=== PATIENT | male | born 1965 | race Caucasian/White ===

== ENCOUNTER 2019-03-24 05:48 | Inpatient (IN) ==
[2019-03-24] MEDS ORDERED: Ipratropium/Albuterol Neb 3 ML ONE ×2 (05:52→06:54)
[2019-03-24] MEDS ORDERED: Ipratropium/Albuterol Neb 3 ML IH ONE (05:56)
[2019-03-24] MEDS ORDERED: methylPREDNISolone 125 MG/2 ML VIAL IVP ONE (05:56)
[2019-03-24] MEDS ORDERED: Piperacillin/Tazobactam 3.375 GM in Water for inj. (sterile) 20 ML IVP ONE (05:56)
[2019-03-24] MEDS ORDERED: Isovue-370 500 ML BOTTLE IVP ONE (05:56)
[2019-03-24] MEDS ORDERED: Vancomycin 1,000 MG VIAL IVPB ONE (05:56)
[2019-03-24] MEDS ORDERED: 0.9 % Sodium Chloride 250 ML ONE (06:10)
[2019-03-24 06:22] LABS: VBG HCO3 19 mEq/L (21-27); VBG PCO2 27 mmHg (41-51); VBG PH 7.47 pH Units (7.32-7.42); VBG PO2 127 mmHg (25-50)
[2019-03-24] MEDS ORDERED: 0.9 % Sodium Chloride 1,000 ML IVC SCH (06:30)
--- NOTE | 2019-03-24 06:44 | Emergency Department Note ---
Disposition Clinical Impression: Shortness of breath, Hypoxia Disposition: Still a Patient Referrals: NONE,PCP [Primary Care Provider] - Time of Disposition: 07:02 General Adult HPI - General Chief complaint: ED Shortness of Breath/Dyspnea Stated complaint: CECE Time Seen by Provider: 03/24/19 05:56 Source: patient, EMS, other Limitations: no limitations - History of Present Illness Pain Scale: 0 - Related Data Allergies Allergy/AdvReac Type Severity Reaction Status Date / Time naproxen AdvReac Gastrointestinal Verified 03/24/19 05:58 Upset Past Medical History - Past Medical History Medical history: Reports: COPD, coronary artery disease, diabetes, GERD, other Psychiatric history: Reports: anxiety, depression - Social History Smoking Status: Current every day smoker Smokeless Tobacco Status: No Alcohol use: Reports: occasionally Drug use: Reports: marijuana Physical Exam - General Limitations: no limitations General appearance: alert Course Vital Signs Temperature 98.5 F 03/24/19 05:53 Pulse Rate 123 03/24/19 05:53 Respiratory Rate 46 03/24/19 05:53 Blood Pressure 143/94 03/24/19 05:53 O2 Sat by Pulse Oximetry 97 03/24/19 05:53 Temperature 98.5 F 03/24/19 05:56 Pulse Rate 123 03/24/19 05:56 Respiratory Rate 46 03/24/19 05:56 Blood Pressure 143/94 03/24/19 05:56 O2 Sat by Pulse Oximetry 98 03/24/19 05:56 Oxygen Delivery Oxygen Delivery Bipap Medical Decision Making - Lab Data Lab Results 03/24/19 Range/Units 06:20 VBG pH 7.47 H (7.32-7.42) pH Units VBG pCO2 27 L (41-51) mmHg VBG pO2 127 H (25-50) mmHg VBG HCO3 19 L (21-27) mEq/L Attestation Statement - Attestation Attestation: I, Roshan Mathew DO, examined this patient [id number] and my medical decision-making was reviewed with Dr. Lizbet Fitzgerald, Resident Physician. I agree with the documented findings, disposition and treatment plan as described except to the extent set forth below. I personally supervised and was present for the ellington/critical portions of the procedures completed by the resident documented below. Please see my progress notes for details. 53-year-old male presents emergency room for evaluation of increased work of breathing and shortness of breath. Patient was transferred from the [facility] for evaluation of hypoxia and increased work of breathing. P atient was placed on BiPAP prior to transportation. Pulse ox is in the 70s with initially evaluated and that responded appropriately during transport. On arrival here the patient is alert and oriented. He is able to fall commands and answer questions. Patient has diaphoretic skin. His lungs are significantly diminished with expiratory wheezing. Heart is regular and tachycardic. Abdomen is soft. No guarding no rigidity noted at this time. Extremities otherwise normal. Patient was replaced on BiPAP. VBG, CBC, chemistry, troponin, BNP were collected in order this time. EKG was also collected. Chest x-ray and labs are otherwise pending. Disposition to be determined. EKG is reviewed by myself in documented in the resident physician's note. See detailed documentation of the physical exam, medical intervention, medical decision-making and disposition the resident physician's note. No critical care provider the patient's treatment course at this time. [id number] Patient has labs and imaging that is still pending at this time. Disposition to be completed by the daytime physician Dr. Russ Elizondo. Patient will most likely require admission at this facility or have the ability to be transferred back to the [facility] after the workup has been completed. Patient is otherwise clinically stable and still has pending imaging to be established.
--- NOTE | 2019-03-24 06:48 | Emergency Department Note ---
Disposition Clinical Impression: Shortness of breath, Hypoxia Disposition: Still a Patient Condition: Fair Referrals: NONE,PCP [Primary Care Provider] - Forms: ED Satisfaction Letter Time of Disposition: 07:10 SOB HPI - General Chief Complaint: ED Shortness of Breath/Dyspnea Stated Complaint: CECE Time Seen by Provider: 03/24/19 05:56 Source: patient, EMS, other Mode of arrival: EMS Limitations: no limitations Nursing Notes Reviewed: Yes Vital Signs Reviewed: Yes - History of Present Illness Patient states that he started to feel poorly on Saturday [facility]. He was diagnosed with pneumonia and admitted. Overnight around 1:00 in the morning patient began to feel extremely short of breath, and so EMS was called and he was brought to this facility for further evaluation. Patient arrives on BiPAP, he is alert and oriented, talking, able to answer questions. He states that he is feeling much better that he fell yesterday. EMS notes that when they first arrived his oxygen saturation was in the 70s, and remained in the high 80s to low 90s during transport while on BiPAP. Upon initial evaluation BiPAP mask does not appear to be well fitting, patient is quickly moved over to the BiPAP apparatus in this facility. - Related Data Allergies Allergy/AdvReac Type Severity Reaction Status Date / Time naproxen AdvReac Gastrointestinal Verified 03/24/19 05:58 Upset Review of Systems: In addition to that documented in the HPI above, the additional ROS was obtained: Constitutional: Reports fevers and chills Eyes: Denies vision changes ENMT: Denies sore throat CV: Denies chest pain Resp: Reports SOB GI: Denies vomiting or diarrhea : Denies painful urination MSK: Denies recent trauma Skin: Denies new rashes Neuro: Denies new numbness or tingling or weakness Past Medical History - Past Medical History Attestation: Yes The following information was validated with the patient. Medical history: Reports: COPD, coronary artery disease, diabetes, GERD, other Psychiatric history: Reports: anxiety, depression - Social History Smoking Status: Current every day smoker Smokeless Tobacco Status: No Alcohol use: Reports: occasionally Drug use: Reports: marijuana Physical Exam General: Awake. Conversant. Tachynpneic. Well developed, well nourished. Pt is diaphoretic. Head: atraumatic, normocephalic. ENT: No conjunctival injection, no scleral icterus. PERRLA. EOMI. Oropharynx non- erythematous. mucous membranes moist. Neuro: No focal deficits, no speech deficit, no facial droop, mentating well. BUE/BLE Str 5/5. Pulm: Right sided wheezes in upper and lower lung mendez. Left sided mendez CTAB. Cardio: RRR no m/r/g. Chest not tender to palpation. Abd: Soft, non-distended. Normoactive bowel sounds. Non-tender to palpation. No guarding. Non rigid. Extremities: Radial pulses 2+ geovani, dorsalis pedis/posterior tibialis 2+ geovani. No LE edema. No cyanosis, clubbing. Skin: warm, dry, intact. No rashes. Psych: Appropriate mood and affect. Answers questions appropriately. Cooperative with exam. - General Limitations: no limitations General appearance: alert Course Vital Signs Respiratory Rate 45 03/24/19 05:50 O2 Sat by Pulse Oximetry 98 03/24/19 05:50 Temperature 98.5 F 03/24/19 05:56 Pulse Rate 118 03/24/19 06:46 Respiratory Rate 42 03/24/19 06:46 Blood Pressure 118/72 03/24/19 06:46 O2 Sat by Pulse Oximetry 99 03/24/19 06:46 Oxygen Delivery Oxygen Delivery Bipap Shortness of Breath/Dyspnea - MDM Narrative Medical decision making narrative: Patient will be signed out to the dayshift team. Please see Dr. Russ Elizondo's note for full results of the workup and disposition. - Lab Data Lab Results 03/24/19 03/24/19 Range/Units 05:58 06:20 VBG pH 7.47 H (7.32-7.42) pH Units VBG pCO2 27 L (41-51) mmHg VBG pO2 127 H (25-50) mmHg VBG HCO3 19 L (21-27) mEq/L Lactic Acid 1.1 (0.5-2.2) mmol/L - EKG Data EKG attestation: Yes I reviewed and interpreted this EKG. EKG results narrative: Heart rate 123, rhythm sinus tachycardia, axis normal. All intervals within normal limits. No evidence of ST elevation or depression. Low voltage in precordial leads noted. Attestation Statement - Attestation Attestation: I, Roshan Mathew DO, examined this patient [id number] and my medical decision-making was reviewed with Dr. Lizbet Fitzgerald, Resident Physician. I agree with the documented findings, disposition and treatment plan as described except to the extent set forth below. I personally supervised and was present for the ellington/critical portions of the procedures completed by the resident documented below. Please see my progress notes for details.
[2019-03-24 07:50] LABS: Hematocrit 41.2 % (37.5-50.1); Hemoglobin 14.6 g/dL (12.9-16.9); Mean Corpuscular HGB Conc 35.4 g/dL (31.6-35.5); Mean Corpuscular Hemoglobin 30.7 pg (28.0-33.3); Mean Corpuscular Volume 86.6 fL (83.0-100.0); Mean Platelet Volume 11.7 fL (9.4-12.4); Platelet Count 130 K/mcL (140-400); Red Blood Count 4.76 M/mcL (4.19-5.50); Red Cell Distribution Width 12.5 % (11.5-14.5)
[2019-03-24 08:13] LABS: Alanine Aminotransferase 43 Units/L (7-52); Albumin/Globulin Ratio 1.2 (1.1-2.2); Alkaline Phosphatase 57 Units/L (34-104); Aspartate Amino Transferase 53 Units/L (13-39); BUN/Creatinine Ratio 23 (6-26); Bilirubin,Direct 0.4 mg/dL (0.0-0.2); Bilirubin,Indirect 0.4 mg/dL (0.0-1.2); Bilirubin,Total 0.8 mg/dL (0.3-1.0); Blood Urea Nitrogen 18 mg/dL (6-20); Calcium 8.1 mg/dL (8.6-10.3); Carbon Dioxide 20 mEq/L (23-29); Chloride 90 mEq/L (98-107); Globulin 2.6 g/dL (2.4-3.5); Glucose 288 mg/dL (70-105); Osmolality,Calculated 272 (280-300); Potassium 3.7 mEq/L (3.5-5.1); Sodium 125 mEq/L (136-145); Total Protein 5.6 g/dL (6.4-8.9); eGFR For African Americans > 60 (> 60); eGFR For Non-African Americans > 60 (> 60)
[2019-03-24 08:14] LABS: Troponin I < 0.03 ng/mL (< 0.04)
[2019-03-24 09:18] LABS: Toxic Granulation Present (Not Present)
[2019-03-24 09:19] LABS: Platelet Estimate Decreased (Normal)
--- NOTE | 2019-03-24 10:45 | Internal Med History&Physical ---
Date of Encounter: 03/24/19 Time of Encounter: 14:43 Internal Medicine - H&P: HPI Chief complaint: shortness of breath History of present illness: Mr. Abbott is a 54 year old male with past medical history of COPD, coronary artery disease, diabetes, GERD, Vit D deficiency/allergic rhinitis, Shaikh's esophagus, cannabis abuse and ETOH abuse and tobacco abuse who [facility] generalized [facility] and shortness of breath, he was diagnosed with pneumonia and he was admitted for further evaluation and management. This morning the patient reportedly started complaining of difficulty breathing and he is oxygen saturation start dropping down, he was started on BiPAP and then was sent to the ER for further evaluation and management. As per documentation when EMS first arrived the patient was saturating in mid 70s that improved on BiPAP 90s. According to the ER documentation the BiPAP mask was not fitted well, and after starting BiPAP through the facility apparatus the patient saturation improved significantly, the patient was treated with antibiotic and steroids in the ER and was admitted for further evaluation and management of COPD exacerbation. The patient is feeling much better and has no specific complaints. Past Med Surg Social Fam HX - Past Medical History Medical history: COPD, coronary artery disease, diabetes, GERD, other Additional medical history: Vit D deficiency/allergic rhinitis. Shaikh's esophagus. cannabis abuse and ETOH abuse and tobacco abuse. obesity/chronic prostatitis. hepatomegaly Psychiatric history: anxiety, depression - Social History Smoking Status: Current every day smoker Smokeless Tobacco Status: No Alcohol use: occasionally Drug use: marijuana Internal Medicine - H&P: Meds Atorvastatin Calcium [Lipitor] 40 mg PO HS 03/24/19 [History] Ipratropium/Albuterol Sulfate [Combivent Respimat Inhal [place]] 1 puff IH QID PRN 03/24/19 [History] Omeprazole [PriLOSEC] 20 mg PO DAILY 03/24/19 [History] Budesonide/Formoterol 160/4.5 [Symbicort 160/4.5] 2 puff IH BIDR 03/25/19 [History] Cetirizine HCl [Zyrtec] 10 mg PO DAILY PRN 03/25/19 [History] Ketotifen Fumarate [Zaditor] 1 drop BOTH EYES BID 03/25/19 [History] Losartan Potassium 50 mg PO DAILY 03/25/19 [History] Metformin HCl [Glucophage Xr] 1,000 mg PO DAILY 03/25/19 [History] Tetrahydrozoline HCl [Visine] 2 drop BOTH EYES DAILY 03/25/19 [History] Alcohol Antiseptic Pads [Alcohol Pads] 1 each TP 2-4XD #100 med..pad 03/28/19 [Rx] Blood Sugar Diagnostic [Accu-Chek Guide Test Strip] 1 each ACHS #100 strip 03/28/19 [Rx] Blood-Glucose Meter, Drum-Type [Accu-Chek] 1 each DAILY #1 kit 03/28/19 [Rx] Budesonide Neb [Pulmicort Neb] 0.5 mg IH BIDR #60 ampul.neb 03/28/19 [Rx] Folic Acid 1 mg PO DAILY #30 tablet 03/28/19 [Rx] Insulin Aspart (Niacinamide) [Fiasp 100 Unit/ml Flextouch] 5 unit SQ TIDAC #1 insuln.pen 03/28/19 [Rx] Insulin DETEMIR [Levemir] 30 unit SQ DAILY #1 [id number] 03/28/19 [Rx] Ipratropium/Albuterol Neb [Duoneb] 3 ml IH Q4HR PRN #100 inhsol 03/28/19 [Rx] Lancets 1 each ACHS #100 each 03/28/19 [Rx] Levofloxacin [Levaquin] 750 mg PO DAILY 10 Days #10 tablet 03/28/19 [Rx] Nicotine Patch [Nicoderm] 14 mg TD DAILY #30 patch.td24 03/28/19 [Rx] Thiamine HCl 100 mg PO QAM #30 tablet 03/28/19 [Rx] predniSONE [PredniSONE] See Taper PO DAILY #30 tablet 03/28/19 [Rx] Allergy/AdvReac Type Severity Reaction Status Date / Time naproxen AdvReac Gastrointestinal Verified 03/25/19 08:07 Upset All Systems PM: A 10-system review of systems was performed and is negative for pertinent findings except as documented above in the HPI. - Constitutional Vitals: Temp Pulse Resp BP Pulse Ox 98.5 F 107 40 134/85 100 03/24/19 05:56 03/24/19 09:57 03/24/19 09:57 03/24/19 09:30 03/24/19 09:57 General appearance: Present: A&O X 3 Exam: ` - Head Head exam: Present: atraumatic, normocephalic - Neck Neck exam general surgery: Present: supple, trachea midline. Absent: lymphadenopathy - Respiratory Respiratory exam: Present: rhonchi, wheezes. Absent: accessory muscle use, rales - Cardiovascular Cardiovascular exam: Present: RRR, +S1, +S2. Absent: diastolic murmur, gallop, rubs, systolic murmur - GI/Abdominal GI/Abdominal exam: Present: normal bowel sounds, soft, no peritoneal signs. Absent: distended, tenderness - Extremities Exam Extremities exam: Present: pedal edema, warm, radial pulses palpable and symmetrical. Absent: calf tenderness, cyanotic Internal Med - H&P Results - Labs CBC & Chem 7: 03/28/19 03:55 03/28/19 03:55 Labs: Short CBC 03/24/19 Range/Units 07:33 WBC 12.0 H (4.3-11.1) K/mcL Hgb 14.6 (12.9-16.9) g/dL Hct 41.2 (37.5-50.1) % Plt Count 130 L (140-400) K/mcL Neutrophils # 12.0 H (1.6-8.9) K/mcL BMP 03/24/19 07:33 Sodium 125 L Potassium 3.7 Chloride 90 L Carbon Dioxide 20 L BUN 18 Creatinine 0.79 Glucose 288 H Calcium 8.1 L Cardiac Enzymes 03/24/19 Range/Units 07:33 Troponin I < 0.03 (< 0.04) ng/mL Liver Function 03/24/19 Range/Units 07:33 Total Bilirubin 0.8 (0.3-1.0) mg/dL Direct Bilirubin 0.4 H (0.0-0.2) mg/dL AST 53 H (13-39) Units/L ALT 43 (7-52) Units/L Alkaline Phosphatase 57 (34-104) Units/L Albumin 3.0 L (3.5-5.7) g/dL - ABG Interpretation ABG results: 03/24/19 06:20 VBG pH 7.47 H VBG pCO2 27 L VBG pO2 127 H VBG HCO3 19 L - Impressions ITS Impressions Chest CTA 03/24/19 05:56 IMPRESSION: Right upper and right middle lobe consolidation and right-sided pleural effusion consistent with pneumonia No evidence for pulmonary emboli. D/ / Roger Norton MD / Roger Norton MD Interpreting Provider: Roger Norton MD Chest X-Ray 03/24/19 05:56 IMPRESSION: Right lung pneumonia. Follow-up to resolution is recommended. D/ / Yo Grubbs MD / Yo Grubbs MD Interpreting Provider: Yo Grubbs MD - Assessment and Plan (1) COPD exacerbation Status: Acute Assessment and plan: - SOB due to COPD caused by URTI ( Pneumonia - infiltrate on CXR) PLAN: - Aerosols q 4 hr and PRN SOB - Solu-medrol 40 mg IV q 6 hr - O2 to keep SpO2 higher than 92% (SpO higher than 95% if CAD) - CBCD, BMP in AM - Sputum Gram stain, C+S - Robitussin 10 cc PO q 4 hr - ABs (2) Coronary artery disease Status: Acute Assessment and plan: the patient denies complaint of chest pain, EKG changes revealed no significant changes, will continue home medications Qualifiers: Qualified Code(s): I25.10 - Atherosclerotic heart disease of jackson coronary artery without angina pectoris (3) Diabetes Status: Acute Assessment and plan: we'll discharge the patient on insulin sliding scale was moderate, Qualifiers: Diabetes mellitus type: type 2 Qualified Code(s): E11.69 - Type 2 diabetes mellitus with other specified complication (4) GERD (gastroesophageal reflux disease) Status: Acute Assessment and plan: we'll continue proton pump inhibitor Qualifiers: Esophagitis presence: without esophagitis Qualified Code(s): K21.9 - Gastro-esophageal reflux disease without esophagitis (5) DVT prophylaxis Status: Acute Assessment and plan: [place] the patient on SCDs (6) Hyponatremia Status: Acute Assessment and plan: most likely secondary to volume depletion in the setting of sepsis and pneumonia, we will start the patient in the dehydration with isotonic fluids. We will continue to monitor sodium level. - Time Spent With Patient Total time spent is greater than 50% in coordination of care (as documented) at patient's floor/unit and/or counseling patient:
[2019-03-24] MEDS ORDERED: Ondansetron 4 MG/2 ML VIAL IVP PRN (10:46)
[2019-03-24] MEDS ORDERED: Naloxone 0.4 MG/ML INJ IVP PRN (10:46)
[2019-03-24] MEDS ORDERED: Vancomycin (wt based) 1,000 MG VIAL IVPB SCH (11:00)
[2019-03-24] MEDS ORDERED: Ipratropium/Albuterol Neb 3 ML IH PRN (11:05)
[2019-03-24] MEDS ORDERED: D5% in Water 1,000 ML IVC PRN (11:06)
[2019-03-24] MEDS ORDERED: Dextrose Gel 15 GM/37.5 ML TUBE PO PRN ×2 (11:06)
[2019-03-24] MEDS ORDERED: *HR* Dextrose 50 % in Water (Syg) 50 ML SYRINGE IVP PRN (11:06)
[2019-03-24] MEDS: 0.9 % Sodium Chloride 1,000 ML IVC SCH ×2 (11:15→21:05)
[2019-03-24 12:31] LABS: Estimated Average Glucose 229 mg/dl
[2019-03-24] MEDS: MethylPREDNISolone 40 MG/ML VIAL IVP SCH ×2 (12:40→16:56)
[2019-03-24] MEDS: Insulin LISPRO 300 UNITS/3 ML VIAL SQ SCH ×3 (13:14→21:04)
--- NOTE | 2019-03-24 14:10 | Electrocardiograph Report ---
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
[2019-03-24] MEDS: Nicotine 14 MG PATCH.TD24 TD SCH (14:53)
[2019-03-24] MEDS ORDERED: Menthol 9.1 MG LOZENGE PO PRN (14:57)
[2019-03-24] MEDS: Ipratropium/Albuterol Neb 3 ML IH SCH ×2 (16:43→22:12)
[2019-03-24] MEDS: Piperacillin/Tazobactam 3.375 GM in 0.9 % Sodium Chloride Mini Bag 100 ML IVPB SCH (16:55)
[2019-03-24] MEDS ORDERED: Pantoprazole 40 MG VIAL IVP SCH (18:00)
[2019-03-24 18:22] LABS: VBG HCO3 22 mEq/L (21-27); VBG PCO2 47 mmHg (41-51); VBG PH 7.28 pH Units (7.32-7.42); VBG PO2 86 mmHg (25-50)
[2019-03-24] MEDS: Ketotifen Fumarate [Zaditor] 1 DROP OP SCH (20:58)
[2019-03-24] MEDS: Acetaminophen 325 MG TABLET PO PRN (22:37)
[2019-03-24 23:13] LABS: Bilirubin,Urine Negative (Negative); Blood,Urine Moderate (Negative); Clarity,Urine Clear (Clear); Color,Urine Yellow (Yellow); Glucose,Urine (UA) >=1000 mg/dL (Normal); Ketones,Urine Trace mg/dL (Negative); Leukocyte Esterase,Urine Negative (Negative); Nitrite,Urine Negative (Negative); PH,Urine 6.5 pH Units (5.0-8.0); Protein,Urine Trace mg/dL (Neg-Trace); Specific Gravity,Urine 1.017 (1.010-1.025); Urobilinogen,Urine Normal (Normal)
[2019-03-24 23:16] LABS: Bacteria,Urine None Seen per hpf (None-Few); Hyaline Casts,Urine None Seen per lpf (None-Few); Squamous Epithelial Cell,Urine None Seen per lpf (None-Few); WBC,Urine 0-3 per hpf (0-3)
[2019-03-25] MEDS: Piperacillin/Tazobactam 3.375 GM in 0.9 % Sodium Chloride Mini Bag 100 ML IVPB SCH ×3 (00:20→16:55)
[2019-03-25] MEDS: MethylPREDNISolone 40 MG/ML VIAL IVP SCH ×2 (00:20→05:41)
[2019-03-25] MEDS: Ipratropium/Albuterol Neb 3 ML IH SCH ×4 (03:54→22:39)
[2019-03-25 05:08] LABS: Hematocrit 38.7 % (37.5-50.1); Hemoglobin 13.8 g/dL (12.9-16.9); Mean Corpuscular HGB Conc 35.7 g/dL (31.6-35.5); Mean Corpuscular Hemoglobin 30.2 pg (28.0-33.3); Mean Corpuscular Volume 84.7 fL (83.0-100.0); Mean Platelet Volume 11.8 fL (9.4-12.4); Platelet Count 152 K/mcL (140-400); Red Blood Count 4.57 M/mcL (4.19-5.50); Red Cell Distribution Width 12.9 % (11.5-14.5); White Blood Count 15.5 K/mcL (4.3-11.1)
[2019-03-25 05:14] LABS: INR 1.2; Prothrombin Time 13.1 Seconds (9.4-12.1)
[2019-03-25 05:17] LABS: Activated Partial Thrombo Time 24.4 Seconds (26.0-36.0)
[2019-03-25 05:29] LABS: Alanine Aminotransferase 41 Units/L (7-52); Albumin 2.8 g/dL (3.5-5.7); Albumin/Globulin Ratio 1.1 (1.1-2.2); Alkaline Phosphatase 57 Units/L (34-104); Aspartate Amino Transferase 43 Units/L (13-39); BUN/Creatinine Ratio 34 (6-26); Bilirubin,Total 0.5 mg/dL (0.3-1.0); Blood Urea Nitrogen 22 mg/dL (6-20); Calcium 8.2 mg/dL (8.6-10.3); Carbon Dioxide 22 mEq/L (23-29); Chloride 95 mEq/L (98-107); Chol/HDL Ratio 7.6 (0-4.9); Cholesterol 99 mg/dL (< 200); Globulin 2.5 g/dL (2.4-3.5); Glucose 316 mg/dL (70-105); HDL Cholesterol 13 mg/dL (40-59); LDL Cholesterol,Calculated 48 mg/dL (0-99); Magnesium 2.2 mg/dL (1.6-2.6); Osmolality,Calculated 285 (280-300); Phosphorous 2.2 mg/dL (2.7-4.5); Potassium 3.8 mEq/L (3.5-5.1); Sodium 130 mEq/L (136-145); Total Protein 5.3 g/dL (6.4-8.9); Triglycerides 191 mg/dL (< 150); eGFR For African Americans > 60 (> 60); eGFR For Non-African Americans > 60 (> 60)
[2019-03-25] MEDS: *HR* Enoxaparin 30 MG/0.3 ML SYRINGE SQ SCH (05:41)
[2019-03-25] MEDS: Acetaminophen 325 MG TABLET PO PRN ×3 (05:41→19:20)
[2019-03-25 06:22] LABS: Lymphocytes # 0.3 K/mcL (0.6-4.6); Monocytes # 0.6 K/mcL (0.0-1.3); Neutrophils # 14.3 K/mcL (1.6-8.9)
[2019-03-25 06:23] LABS: Platelet Estimate Normal (Normal)
--- NOTE | 2019-03-25 07:36 | Emergency Department Note ---
Disposition Clinical Impression: Shortness of breath, Hypoxia Disposition: Admitted As Inpatient Condition: Fair Time of Disposition: 09:34 SOB HPI - General Chief Complaint: ED Shortness of Breath/Dyspnea Stated Complaint: CECE Time Seen by Provider: 03/24/19 05:56 Source: patient, EMS, other Mode of arrival: EMS Limitations: no limitations Nursing Notes Reviewed: Yes Vital Signs Reviewed: Yes - Related Data Home Medications Medication Instructions Recorded Confirmed Alogliptin Benzoate [Alogliptin] 25 mg PO DAILY 03/24/19 03/24/19 Atorvastatin Calcium [Lipitor] 40 mg PO HS 03/24/19 03/24/19 Ipratropium/Albuterol Sulfate 1 puff IH Q4HR PRN 03/24/19 03/24/19 [Combivent Respimat Inhal [place]] Ketotifen Fumarate [Zaditor] 1 drop BOTH EYES BID 03/24/19 03/24/19 Omeprazole [PriLOSEC] 20 mg PO BIDAC 03/24/19 03/24/19 metFORMIN [Glucophage] 500 mg PO BID 03/24/19 03/24/19 Allergies Allergy/AdvReac Type Severity Reaction Status Date / Time naproxen AdvReac Gastrointestinal Verified 03/24/19 05:58 Upset Past Medical History - Past Medical History Medical history: Reports: COPD, coronary artery disease, diabetes, GERD, other Psychiatric history: Reports: anxiety, depression - Social History Smoking Status: Current every day smoker Smokeless Tobacco Status: No Alcohol use: Reports: occasionally Drug use: Reports: marijuana Physical Exam - General Limitations: no limitations General appearance: alert Course Vital Signs Respiratory Rate 45 03/24/19 05:50 O2 Sat by Pulse Oximetry 98 03/24/19 05:50 Temperature 98.5 F 03/25/19 03:33 Pulse Rate 85 03/25/19 03:33 Respiratory Rate 20 03/25/19 04:00 Blood Pressure 145/85 03/25/19 03:33 O2 Sat by Pulse Oximetry 93 03/25/19 04:00 Oxygen Delivery Oxygen Delivery Bipap Shortness of Breath/Dyspnea - MDM Narrative Medical decision making narrative: 54-year-old male received in sign out at started my shift pending CT of the chest, reevaluation and disposition. CT does not show evidence of large PE or acute surgical abnormality. Patient was updated regarding the imaging results. He was already started on antibiotics in the emergency department. His tachycardia did improve with IV fluids and BiPAP however it did not resolve. He is not hypoxic or hypotensive. Patient is resting comfortably in the bed. He will be admitted to the hospitalist for further care and evaluation. - Lab Data Result diagrams: 03/25/19 04:18 03/25/19 04:18 Lab Results 03/24/19 03/24/19 03/24/19 Range/Units 05:58 06:20 07:33 WBC 12.0 H (4.3-11.1) K/mcL RBC 4.76 (4.19-5.50) M/mcL Hgb 14.6 (12.9-16.9) g/dL Hct 41.2 (37.5-50.1) % MCV 86.6 (83.0-100.0) fL MCH 30.7 (28.0-33.3) pg MCHC 35.4 (31.6-35.5) g/dL RDW 12.5 (11.5-14.5) % Plt Count 130 L (140-400) K/mcL MPV 11.7 (9.4-12.4) fL Seg Neutrophils % 94.0 % Band Neutrophils % 6.0 H (0-4) % Neutrophils # 12.0 H (1.6-8.9) K/mcL Toxic Granulation Present A (Not Present) Platelet Estimate Decreased L (Normal) Large Platelets (Not Present) VBG pH 7.47 H (7.32-7.42) pH Units VBG pCO2 27 L (41-51) mmHg VBG pO2 127 H (25-50) mmHg VBG HCO3 19 L (21-27) mEq/L Sodium (136-145) mEq/L Potassium (3.5-5.1) mEq/L Chloride (98-107) mEq/L Carbon Dioxide (23-29) mEq/L BUN (6-20) mg/dL Creatinine (0.70-1.30) mg/dL Est GFR ( Amer) (> 60) Est GFR (Non-Af Amer) (> 60) BUN/Creatinine Ratio (6-26) Glucose (70-105) mg/dL Est Mean Plasma Glucose mg/dl Hemoglobin A1c ( - 5.6) % Calculated Osmolality (280-300) Lactic Acid 1.1 (0.5-2.2) mmol/L Calcium (8.6-10.3) mg/dL Total Bilirubin (0.3-1.0) mg/dL Direct Bilirubin (0.0-0.2) mg/dL Indirect Bilirubin (0.0-1.2) mg/dL AST (13-39) Units/L ALT (7-52) Units/L Alkaline Phosphatase (34-104) Units/L Troponin I (< 0.04) ng/mL B-Natriuretic Peptide (Less than 100) pg/mL Serum Total Protein (6.4-8.9) g/dL Albumin (3.5-5.7) g/dL Globulin (2.4-3.5) g/dL Albumin/Globulin Ratio (1.1-2.2) 03/24/19 03/24/19 03/24/19 Range/Units 07:33 07:33 07:33 WBC (4.3-11.1) K/mcL RBC (4.19-5.50) M/mcL Hgb (12.9-16.9) g/dL Hct (37.5-50.1) % MCV (83.0-100.0) fL MCH (28.0-33.3) pg MCHC (31.6-35.5) g/dL RDW (11.5-14.5) % Plt Count (140-400) K/mcL MPV (9.4-12.4) fL Seg Neutrophils % % Band Neutrophils % (0-4) % Neutrophils # (1.6-8.9) K/mcL Toxic Granulation (Not Present) Platelet Estimate (Normal) Large Platelets (Not Present) VBG pH (7.32-7.42) pH Units VBG pCO2 (41-51) mmHg VBG pO2 (25-50) mmHg VBG HCO3 (21-27) mEq/L Sodium 125 L (136-145) mEq/L Potassium 3.7 (3.5-5.1) mEq/L Chloride 90 L (98-107) mEq/L Carbon Dioxide 20 L (23-29) mEq/L BUN 18 (6-20) mg/dL Creatinine 0.79 (0.70-1.30) mg/dL Est GFR ( Amer) > 60 (> 60) Est GFR (Non-Af Amer) > 60 (> 60) BUN/Creatinine Ratio 23 (6-26) Glucose 288 H (70-105) mg/dL Est Mean Plasma Glucose mg/dl Hemoglobin A1c ( - 5.6) % Calculated Osmolality 272 L (280-300) Lactic Acid 1.2 (0.5-2.2) mmol/L Calcium 8.1 L (8.6-10.3) mg/dL Total Bilirubin 0.8 (0.3-1.0) mg/dL Direct Bilirubin 0.4 H (0.0-0.2) mg/dL Indirect Bilirubin 0.4 (0.0-1.2) mg/dL AST 53 H (13-39) Units/L ALT 43 (7-52) Units/L Alkaline Phosphatase 57 (34-104) Units/L Troponin I < 0.03 (< 0.04) ng/mL B-Natriuretic Peptide 54 (Less than 100) pg/mL Serum Total Protein 5.6 L (6.4-8.9) g/dL Albumin 3.0 L (3.5-5.7) g/dL Globulin 2.6 (2.4-3.5) g/dL Albumin/Globulin Ratio 1.2 (1.1-2.2) 03/24/19 Range/Units 07:33 WBC (4.3-11.1) K/mcL RBC (4.19-5.50) M/mcL Hgb (12.9-16.9) g/dL Hct (37.5-50.1) % MCV (83.0-100.0) fL MCH (28.0-33.3) pg MCHC (31.6-35.5) g/dL RDW (11.5-14.5) % Plt Count (140-400) K/mcL MPV (9.4-12.4) fL Seg Neutrophils % % Band Neutrophils % (0-4) % Neutrophils # (1.6-8.9) K/mcL Toxic Granulation (Not Present) Platelet Estimate (Normal) Large Platelets (Not Present) VBG pH (7.32-7.42) pH Units VBG pCO2 (41-51) mmHg VBG pO2 (25-50) mmHg VBG HCO3 (21-27) mEq/L Sodium (136-145) mEq/L Potassium (3.5-5.1) mEq/L Chloride (98-107) mEq/L Carbon Dioxide (23-29) mEq/L BUN (6-20) mg/dL Creatinine (0.70-1.30) mg/dL Est GFR ( Amer) (> 60) Est GFR (Non-Af Amer) (> 60) BUN/Creatinine Ratio (6-26) Glucose (70-105) mg/dL Est Mean Plasma Glucose 229 mg/dl Hemoglobin A1c 9.6 H ( - 5.6) % Calculated Osmolality (280-300) Lactic Acid (0.5-2.2) mmol/L Calcium (8.6-10.3) mg/dL Total Bilirubin (0.3-1.0) mg/dL Direct Bilirubin (0.0-0.2) mg/dL Indirect Bilirubin (0.0-1.2) mg/dL AST (13-39) Units/L ALT (7-52) Units/L Alkaline Phosphatase (34-104) Units/L Troponin I (< 0.04) ng/mL B-Natriuretic Peptide (Less than 100) pg/mL Serum Total Protein (6.4-8.9) g/dL Albumin (3.5-5.7) g/dL Globulin (2.4-3.5) g/dL Albumin/Globulin Ratio (1.1-2.2)
[2019-03-25] MEDS: Pantoprazole 40 MG VIAL IVP SCH (09:07)
[2019-03-25] MEDS: Insulin LISPRO 300 UNITS/3 ML VIAL SQ SCH ×4 (09:07→20:22)
[2019-03-25] MEDS: Nicotine 14 MG PATCH.TD24 TD SCH (09:08)
[2019-03-25] MEDS: Ketotifen Fumarate [Zaditor] 1 DROP OP SCH ×2 (09:13→20:21)
[2019-03-25] MEDS: Insulin DETEMIR 100 UNIT/ML X5UNITS SQ SCH (09:28)
[2019-03-25] MEDS ORDERED: Loratadine 10 MG TABLET PO PRN (09:59)
[2019-03-25] MEDS ORDERED: *HR* LORazepam 2 MG/ML VIAL IVP PRN ×2 (10:03)
[2019-03-25] MEDS: 0.9 % Sodium Chloride 1,000 ML IVC SCH (11:43)
[2019-03-25] MEDS: Thiamine (B-1) 100 MG TABLET PO SCH (11:43)
[2019-03-25] MEDS: Folic Acid 1 MG TABLET PO SCH (11:43)
[2019-03-25] MEDS: Tetrahydrozoline 15 ML BOTTLE BOTH EYES SCH (11:57)
[2019-03-25] MEDS ORDERED: E-Z-HD (BARIUM SULF) SUSPENSION PO ONE (14:53)
[2019-03-25] MEDS ORDERED: E-Z-PAQUE (BARIUM SULF) SUSP 1 BOTTLE PO ONE (14:53)
[2019-03-25] MEDS: *HR* HYDROcodone/Acet 5/325 mg TABLET PO PRN (20:19)
[2019-03-25] MEDS: (Ketotifen Fumarate [Zaditor] 1 DROP) OP SCH (20:21)
--- NOTE | 2019-03-25 21:00 | Internal Med Progress Note ---
Hospitalist Progress Note - Encounter Date of Encounter: 03/25/19 Time of Encounter: 09:30 - Subjective Interval History: Mr Abbott continues to request to be discharged and wanting to leave. He stated that his SOB has resolved and that his pleuritic chest pain also has subsided - Exam Vitals: Temp Pulse Resp BP Pulse Ox 99.1 F 102 22 153/95 94 03/25/19 19:46 03/25/19 19:46 03/25/19 19:46 03/25/19 19:46 03/25/19 19:46 Exam: GENERAL: NAD, appears unkept, A&O x3, pleasant and conversant SKIN: No skin lesions or rashes, non-jaundiced EYES: EOMI, PERRLA, no sclera icterus HENT: Head atraumatic, no facial asymmetry, frontal and maxillary sinus non- tender, normal hearing, oropharynx and mucosa moist and without any exudates NECK: No cervical lymphadenopathy, trachea midline, thyroid is palpable does not appear enlarged LUNGS: vesicular breath sounds, clear to auscultation, no wheeze, rhonchi, rales or crackles. Non labored respirations HEART: Normal rate and rhythm, no murmurs or rubs ABDOMEN: soft, non-tender, non-distended, bowel sounds x 4 normoactive EXTRMITIES: No LE asymmetry, No LE edema, pedal pulses 1+ and radial pulses 2 + and equal bilaterally NEURO: Speech and comprehension appears intact. PSYCH: uncooperative, non- anxious or irritable, mood and affect is appropriate given the circumstances - Assessment and Plan (1) Right middle lobe pneumonia Current Visit: Yes Status: Acute Assessment and Plan: This was revealed on CT imaging there is concerns for possible aspiration pneumo jamie associated modified barium swallow has been ordered by speech therapy. Continue vancomycin and Zosyn. Patient has been uncorporative. Will obtain a sputum sample his leukocytosis trended up likely in the setting of steroid therapy (2) COPD exacerbation Current Visit: Yes Status: Acute Assessment and Plan: Likely secondary to his right lower lobe pneumonia he did state that he has home nebulizer machine at home and has been compliant with his chronic inhalers continue DuoNeb therapy (3) Coronary artery disease Current Visit: Yes Status: Acute Assessment and Plan: the patient denies complaint of chest pain, EKG changes revealed no significant changes, will continue home medications (4) Diabetes Current Visit: Yes Status: Acute Assessment and Plan: Patient did admit to being noncompliant with his diabetic management hemoglobin A1c on admission was 9.6 will initiate basal as well as sliding scale insulin (5) GERD (gastroesophageal reflux disease) Current Visit: Yes Status: Acute Assessment and Plan: we'll continue proton pump inhibitor (6) DVT prophylaxis Current Visit: Yes Status: Acute (7) Hyponatremia Current Visit: Yes Status: Acute Assessment and Plan: suspect combination of chronic alcoholism as well as decreased oral intake he is asymptomatic we will trend sodium - Time Spent with Patient Total time spent is greater than 50% in coordination of care (as documented) at patient's floor/unit and/or counseling patient: 1 hour patient was threatening to leave AMA had to spend several sessions educated patient on importance of being properly worked up Internal Medicine: Result - Labs CBC & Chem 7: 03/25/19 04:18 03/25/19 18:39 Labs: Short CBC 03/25/19 Range/Units 04:18 WBC 15.5 H (4.3-11.1) K/mcL Hgb 13.8 (12.9-16.9) g/dL Hct 38.7 (37.5-50.1) % Plt Count 152 (140-400) K/mcL Neutrophils # 14.3 H (1.6-8.9) K/mcL BMP 03/25/19 03/25/19 03/25/19 04:18 12:13 14:00 Sodium 130 L 129 L 127 L Potassium 3.8 Chloride 95 L Carbon Dioxide 22 L BUN 22 H Creatinine 0.64 L Glucose 316 H Calcium 8.2 L 03/25/19 18:39 Sodium 129 L Potassium Chloride Carbon Dioxide BUN Creatinine Glucose Calcium Cardiac Enzymes 03/24/19 Range/Units 22:34 Troponin I < 0.03 (< 0.04) ng/mL Liver Function 03/25/19 Range/Units 04:18 Total Bilirubin 0.5 (0.3-1.0) mg/dL AST 43 H (13-39) Units/L ALT 41 (7-52) Units/L Alkaline Phosphatase 57 (34-104) Units/L Albumin 2.8 L (3.5-5.7) g/dL Urine 03/24/19 Range/Units 22:50 Urine Color Yellow (Yellow) Urine Clarity Clear (Clear) Urine pH 6.5 (5.0-8.0) pH Units Ur Specific [place] 1.017 (1.010-1.025) Urine Protein Trace (Neg-Trace) mg/dL Urine Glucose (UA) >=1000 H (Normal) mg/dL - ABG Interpretation ABG results: PT/INR, D-dimer PT 13.1 Seconds (9.4-12.1) H 03/25/19 04:18 - Impressions Impressions Videofluoroscopic Swallow 03/25/19 10:33 IMPRESSION: Swallowing mechanism grossly within normal limits without evidence of aspiration. Please see separate speech pathology report for full discussion of findings and recommendations. D/ / Freddie Miranda MD / Freddie Miranda MD Interpreting Provider: Freddie Miranda MD Consult Discharge Plan - Plan Referrals: NONE,PCP [Primary Care Provider] - (3) Coronary artery disease Qualifiers: Qualified Code(s): I25.10 - Atherosclerotic heart disease of [place] coronary artery without angina pectoris (4) Diabetes Qualifiers: Diabetes mellitus type: type 2
[2019-03-25] MEDS: *HR* LORazepam 2 MG/ML VIAL IVP PRN (22:05)
[2019-03-25] MEDS: Budesonide/Formoterol 160/4.5 1 PUFF INH IH SCH (22:39)
[2019-03-26] MEDS: 0.9 % Sodium Chloride 1,000 ML IVC SCH (00:33)
[2019-03-26] MEDS: Piperacillin/Tazobactam 3.375 GM in 0.9 % Sodium Chloride Mini Bag 100 ML IVPB SCH ×3 (00:36→17:00)
[2019-03-26] MEDS: Ipratropium/Albuterol Neb 3 ML IH SCH ×4 (03:16→22:15)
[2019-03-26] MEDS: *HR* Enoxaparin 30 MG/0.3 ML SYRINGE SQ SCH (06:12)
[2019-03-26] MEDS: *HR* HYDROcodone/Acet 5/325 mg TABLET PO PRN ×3 (06:12→14:38)
[2019-03-26] MEDS: Insulin DETEMIR 100 UNIT/ML X5UNITS SQ SCH (08:05)
[2019-03-26 08:07] LABS: Basophils % 0.2 %; Hematocrit 36.4 % (37.5-50.1); Hemoglobin 12.6 g/dL (12.9-16.9); Immature Granulocytes % 1.3 % (0-4); Lymphocytes # 0.6 K/mcL (0.6-4.6); Mean Corpuscular HGB Conc 34.6 g/dL (31.6-35.5); Mean Corpuscular Hemoglobin 29.9 pg (28.0-33.3); Mean Corpuscular Volume 86.3 fL (83.0-100.0); Mean Platelet Volume 11.5 fL (9.4-12.4); Monocytes # 0.7 K/mcL (0.0-1.3); Monocytes % 5.5 %; Neutrophils # 11.1 K/mcL (1.6-8.9); Platelet Count 176 K/mcL (140-400); Red Blood Count 4.22 M/mcL (4.19-5.50); White Blood Count 12.6 K/mcL (4.3-11.1)
[2019-03-26] MEDS: Folic Acid 1 MG TABLET PO SCH (08:10)
[2019-03-26] MEDS: Nicotine 14 MG PATCH.TD24 TD SCH (08:10)
[2019-03-26] MEDS: Ketotifen Fumarate [Zaditor] 1 DROP OP SCH ×2 (08:11→23:59)
[2019-03-26] MEDS: Pantoprazole 40 MG VIAL IVP SCH (08:11)
[2019-03-26] MEDS: (Ketotifen Fumarate [Zaditor] 1 DROP) OP SCH ×2 (08:11→23:59)
[2019-03-26] MEDS: Insulin LISPRO 300 UNITS/3 ML VIAL SQ SCH ×4 (08:12→23:58)
[2019-03-26] MEDS: Thiamine (B-1) 100 MG TABLET PO SCH (08:12)
[2019-03-26 08:29] LABS: BUN/Creatinine Ratio 29 (6-26); Blood Urea Nitrogen 16 mg/dL (6-20); Calcium 7.8 mg/dL (8.6-10.3); Carbon Dioxide 23 mEq/L (23-29); Chloride 98 mEq/L (98-107); Glucose 194 mg/dL (70-105); Osmolality,Calculated 274 (280-300); Potassium 3.6 mEq/L (3.5-5.1); Sodium 129 mEq/L (136-145); eGFR For African Americans > 60 (> 60); eGFR For Non-African Americans > 60 (> 60)
[2019-03-26] MEDS ORDERED: MethylPREDNISolone 40 MG/ML VIAL IVP SCH (09:00)
[2019-03-26] MEDS: Budesonide/Formoterol 160/4.5 1 PUFF INH IH SCH ×2 (09:28→22:15)
[2019-03-26] MEDS: *HR* LORazepam 2 MG/ML VIAL IVP PRN ×2 (11:40→14:38)
[2019-03-26] MEDS ORDERED: Aminoglycoside Consult 1 EACH MC ONE (12:58)
--- NOTE | 2019-03-26 15:10 | Internal Med Progress Note ---
Hospitalist Progress Note - Encounter Date of Encounter: 03/26/19 Time of Encounter: 15:07 - Subjective Interval History: per nursing staff Mr Abbott has been quite agitated today and requesting discharge. His CIWA score was 6 as such he was administered lorazepam IV which has made patient sleepy. As such no history was elicited from the patient during today's encounter. - Exam Vitals: Temp Pulse Resp BP Pulse Ox 100.2 F H 106 22 150/80 91 03/26/19 11:44 03/26/19 11:44 03/26/19 11:44 03/26/19 11:44 03/26/19 11:44 Exam: GENERAL: appears unkept appears to be in deep sleep but not in acute distress. SKIN: No skin lesions or rashes, non-jaundiced EYES: EOMI, PERRLA, no sclera icterus HENT: Head atraumatic, no facial asymmetry, NECK: No cervical lymphadenopathy, trachea midline LUNGS: somewhat diminished with scattered rales., no wheeze, rhonchi, Non labored respirations HEART: Normal rate and rhythm, no murmurs or rubs ABDOMEN: soft, non-tender, non-distended, bowel sounds x 4 normoactive EXTRMITIES: No LE asymmetry, No LE edema, pedal pulses 1+ and radial pulses 2 + and equal bilaterally NEURO: Response to painful stimuli, somnolent PSYCH: deferred - Assessment and Plan (1) Right middle lobe pneumonia Current Visit: Yes Status: Acute Assessment and Plan: This was revealed on CT imaging there is concerns for possible aspiration pneumonia. He was evaluated by speech therapy and a modified barium swallow study was unremarkable. Given his likely alcoholism aspiration is still high on the differential from a alcoholic intoxication passing out which has not been ruled out given the patient is not forthcoming with his chronic alcoholism. He has been unable to provide any sputum sample. His leukocytosis is trending down however he continues to have a febrile response today will Continue vancomycin and Zosyn. Given the aforementioned chronic alcoholism and pneumonia patient is not deemed able to make medical decisions as such he should not be allowed to leave AGAINST MEDICAL ADVICE if any medical hold should be placed if patient tries to leave AGAINST MEDICAL ADVICE. Suspect alcoholic withdrawal at this point as the etiology for his agitation. Continue CIWA protocol (2) Diabetes Current Visit: Yes Status: Acute Assessment and Plan: [id number] glucose monitoring and showed improvement since initiated On insulin therapy. Patient did admit to being noncompliant with his diabetic management hemoglobin A1c on admission was 9.6 will initiate basal as well as sliding scale insulin (3) Hyponatremia Current Visit: Yes Status: Acute Assessment and Plan: Serum sodium stable at 129. We will place on fluid restriction 1.2 L. No futher workup will be initiated at this time will clinically correlate. suspect combination of chronic alcoholism as well as decreased oral intake he is as ymptomatic we will trend sodium (4) Chronic alcohol dependence, continuous Current Visit: Yes Status: Acute Assessment and Plan: Patient has no forthcoming with his alcoholic history he has been placed on the CIWA protocol. His agitation this morning could be attributable to alcoholic withdrawal. Patient is not deemed capable of making medical decisions as such should not be allowed to leave AMA if any medical hold should be placed on the patient (5) COPD exacerbation Current Visit: Yes Status: Acute Assessment and Plan: Likely secondary to his right lower lobe pneumonia he did state that he has home nebulizer machine at home and has been compliant with his chronic inhalers continue DuoNeb therapy (6) Coronary artery disease Current Visit: Yes Status: Acute Assessment and Plan: Chronic and stable the patient denies complaint of chest pain, EKG changes revealed no significant changes, will continue home medications (7) GERD (gastroesophageal reflux disease) Current Visit: Yes Status: Acute Assessment and Plan: we'll continue proton pump inhibitor (8) DVT prophylaxis Current Visit: Yes Status: Acute Assessment and Plan: the patient on SCDs, he is on Lovenox - Time Spent with Patient Total time spent is greater than 50% in coordination of care (as documented) at patient's floor/unit and/or counseling patient: less than 15 minutes Internal Medicine: Result - Labs CBC & Chem 7: 03/26/19 07:49 03/26/19 07:49 Labs: Short CBC 03/26/19 Range/Units 07:49 WBC 12.6 H (4.3-11.1) K/mcL Hgb 12.6 L (12.9-16.9) g/dL Hct 36.4 L (37.5-50.1) % Plt Count 176 (140-400) K/mcL Neutrophils # 11.1 H (1.6-8.9) K/mcL BMP 03/25/19 03/25/19 03/26/19 18:39 22:52 03:35 Sodium 129 L 130 L 130 L Potassium Chloride Carbon Dioxide BUN Creatinine Glucose Calcium 03/26/19 03/26/19 06:48 07:49 Sodium 122 L 129 L Potassium 3.6 Chloride 98 Carbon Dioxide 23 BUN 16 Creatinine 0.56 L Glucose 194 H Calcium 7.8 L - ABG Interpretation ABG results: PT/INR, D-dimer PT 13.1 Seconds (9.4-12.1) H 03/25/19 04:18 - Impressions Impressions Videofluoroscopic Swallow 03/25/19 10:33 IMPRESSION: Swallowing mechanism grossly within normal limits without evidence of aspiration. Please see separate speech pathology report for full discussion of findings and recommendations. D/ / Freddie Miranda MD / Freddie Miranda MD Interpreting Provider: Freddie Miranda MD Consult Discharge Plan - Plan Referrals: NONE,PCP [Primary Care Provider] - (2) Diabetes Qualifiers: Diabetes mellitus type: type 2 (6) Coronary artery disease Qualifiers: Qualified Code(s): I25.10 - Atherosclerotic heart disease of [place] coronary artery without angina pectoris
[2019-03-26] MEDS: Acetaminophen 325 MG TABLET PO PRN (16:58)
[2019-03-26] MEDS: levoFLOXacin 750 MG/150 ML 750 MG/150 ML BAG IVPB SCH (18:28)
[2019-03-27 03:26] LABS: Basophils % 0.2 %; Hematocrit 36.7 % (37.5-50.1); Hemoglobin 12.7 g/dL (12.9-16.9); Lymphocytes # 0.7 K/mcL (0.6-4.6); Lymphocytes % 6.5 %; Mean Corpuscular HGB Conc 34.6 g/dL (31.6-35.5); Mean Corpuscular Volume 86.6 fL (83.0-100.0); Mean Platelet Volume 11.7 fL (9.4-12.4); Monocytes # 0.5 K/mcL (0.0-1.3); Monocytes % 4.7 %; Neutrophils # 9.9 K/mcL (1.6-8.9); Platelet Count 177 K/mcL (140-400); Red Blood Count 4.24 M/mcL (4.19-5.50); Red Cell Distribution Width 13.1 % (11.5-14.5); Segmented Neutrophils % 86.6 %; White Blood Count 11.4 K/mcL (4.3-11.1)
[2019-03-27] MEDS: Acetaminophen 325 MG TABLET PO PRN (03:45)
[2019-03-27 03:46] LABS: Blood Urea Nitrogen 14 mg/dL (6-20); Calcium 7.6 mg/dL (8.6-10.3); Carbon Dioxide 27 mEq/L (23-29); Chloride 96 mEq/L (98-107); Glucose 146 mg/dL (70-105); Magnesium 1.8 mg/dL (1.6-2.6); Osmolality,Calculated 275 (280-300); Potassium 3.3 mEq/L (3.5-5.1); Sodium 131 mEq/L (136-145)
[2019-03-27 04:01] LABS: BUN/Creatinine Ratio 23 (6-26); eGFR For African Americans > 60 (> 60); eGFR For Non-African Americans > 60 (> 60)
[2019-03-27] MEDS: Ipratropium/Albuterol Neb 3 ML IH SCH ×4 (04:12→22:16)
[2019-03-27] MEDS: *HR* Enoxaparin 40 MG/0.4 ML SYRINGE SQ SCH (06:14)
[2019-03-27] MEDS: Insulin LISPRO 300 UNITS/3 ML VIAL SQ SCH ×4 (08:38→20:58)
[2019-03-27] MEDS: Nicotine 14 MG PATCH.TD24 TD SCH (08:40)
[2019-03-27] MEDS: Folic Acid 1 MG TABLET PO SCH (08:40)
[2019-03-27] MEDS: Thiamine (B-1) 100 MG TABLET PO SCH ×2 (08:40→08:46)
[2019-03-27] MEDS: predniSONE 20 MG TABLET PO SCH (08:40)
[2019-03-27] MEDS: Pantoprazole 40 MG VIAL IVP SCH (08:40)
[2019-03-27] MEDS: Insulin DETEMIR 100 UNIT/ML X5UNITS SQ SCH (08:41)
[2019-03-27] MEDS: levoFLOXacin 750 MG/150 ML 750 MG/150 ML BAG IVPB SCH (08:41)
[2019-03-27] MEDS: Piperacillin/Tazobactam 3.375 GM in 0.9 % Sodium Chloride Mini Bag 100 ML IVPB SCH ×4 (08:42→23:42)
[2019-03-27] MEDS: Tetrahydrozoline 15 ML BOTTLE BOTH EYES SCH (08:47)
[2019-03-27] MEDS: (Ketotifen Fumarate [Zaditor] 1 DROP) OP SCH ×2 (08:47→21:05)
[2019-03-27] MEDS: Budesonide/Formoterol 160/4.5 1 PUFF INH IH SCH ×2 (10:14→22:16)
[2019-03-27] MEDS: *HR* LORazepam 2 MG/ML VIAL IVP PRN (10:30)
--- NOTE | 2019-03-27 12:38 | Internal Med Progress Note ---
Hospitalist Progress Note - Encounter Date of Encounter: 03/27/19 Time of Encounter: 08:15 - Subjective Interval History: Patient reports feeling somewhat better with regard to his shortness of breath and pleuritic chest pain. His daughter who was at the bedside today confirms the patient's report of having a dirty fish tank in the home. Of note per report from the [facility] lab in [place] the patient does have a positive Legionella urine antigen. Per nursing staff somewhat agitated and has likely alcoholic withdrawal - Exam Vitals: Temp Pulse Resp BP Pulse Ox 100.2 F H 102 20 154/93 92 03/27/19 11:30 03/27/19 11:30 03/27/19 11:30 03/27/19 11:30 03/27/19 11:30 Exam: GENERAL: appears unkept appears NAD, daughter at his bedside SKIN: No skin lesions or rashes, non-jaundiced EYES: EOMI, PERRLA, no sclera icterus HENT: Head atraumatic, no facial asymmetry, NECK: No cervical lymphadenopathy, trachea midline LUNGS: somewhat diminished with scattered rales. no wheeze, rhonchi, Non labored respirations HEART: Normal rate and rhythm, no murmurs or rubs ABDOMEN: soft, non-tender, non-distended, bowel sounds x 4 normoactive EXTRMITIES: No LE asymmetry, No LE edema, pedal pulses 1+ and radial pulses 2 + and equal bilaterally NEURO: A&O x 3, his speech and comprehension appears intact PSYCH: Mood and affect is appropriate - Assessment and Plan (1) Legionella pneumonia Current Visit: Yes Status: Acute Assessment and Plan: Although there were initial concerns of possible aspiration pneumonia given his chronic alcoholic use, lab reports from the [facility] office with a revealed that patient had positive Legionella antigen in his urine. Is most likely that patient has Legionella pneumonia given his hyponatremia also which was initially related to his chronic alcoholism. His initial empiric antimicrobial therapy of vancomycin and Zosyn has been the escalated to Zosyn only both with the addition of levofloxacin given the aforementioned findings. His leukocytosis is trending down however he continues to have febrile response. Clinically appears to be improving likely going through alcohol withdrawal (2) Diabetes Current Visit: Yes Status: Acute Assessment and Plan: [id number] glucose monitoring and showed improvement since initiated On insulin therapy 170-250. Patient did admit to being noncompliant with his diabetic management hemoglobin A1c on admission was 9.6 will initiate basal as well as sliding scale insulin (3) Hyponatremia Current Visit: Yes Status: Acute Assessment and Plan: Serum sodium improved from 129-131. Continue fluiid restriction 1.2 L. No futher workup will be initiated at this time will clinically correlate. suspect combination of chronic alcoholism as well as decreased oral intake he is asymptomatic, however his Legionella pneumonia could be also contributing anticipates to continue to trend up we will check BMP in the morning (4) Chronic alcohol dependence, continuous Current Visit: Yes Status: Acute Assessment and Plan: Patient appears to be going through alcohol withdrawal at this time given his tachycardia and agitation. We will plan on placing him on scheduled Ativan for the next 48 hours. Patient is not forthcoming with his alcoholic history he has been placed on the CIWA protocol. His agitation this morning could be attributable to alcoholic withdrawal. Patient is not deemed capable of making medical decisions as such should not be allowed to leave AMA if any medical hold should be placed on the patient (5) COPD exacerbation Current Visit: Yes Status: Acute Assessment and Plan: Likely secondary to his right lower lobe pneumonia he did state that he has home nebulizer machine at home and has been compliant with his chronic inhalers continue DuoNeb therapy (6) Coronary artery disease Current Visit: Yes Status: Acute Assessment and Plan: Chronic and stable the patient denies complaint of chest pain, EKG changes revealed no significant changes, will continue home medications (7) GERD (gastroesophageal reflux disease) Current Visit: Yes Status: Acute Assessment and Plan: we'll continue proton pump inhibitor (8) DVT prophylaxis Current Visit: Yes Status: Acute Assessment and Plan: the patient on SCDs, he is on Lovenox - Time Spent with Patient Total time spent is greater than 50% in coordination of care (as documented) at patient's floor/unit and/or counseling patient: 25 - 35 minutes Plan of Care Discussed with: nurse Internal Medicine: Result - Labs CBC & Chem 7: 03/27/19 02:51 03/27/19 02:51 Labs: Short CBC 03/27/19 Range/Units 02:51 WBC 11.4 H (4.3-11.1) K/mcL Hgb 12.7 L (12.9-16.9) g/dL Hct 36.7 L (37.5-50.1) % Plt Count 177 (140-400) K/mcL Neutrophils # 9.9 H (1.6-8.9) K/mcL BMP 03/27/19 02:51 Sodium 131 L Potassium 3.3 L Chloride 96 L Carbon Dioxide 27 BUN 14 Creatinine 0.62 L Glucose 146 H Calcium 7.6 L - ABG Interpretation ABG results: PT/INR, D-dimer PT 13.1 Seconds (9.4-12.1) H 03/25/19 04:18 Consult Discharge Plan - Plan Referrals: NONE,PCP [Primary Care Provider] - (2) Diabetes Qualifiers: Diabetes mellitus type: type 2 (6) Coronary artery disease Qualifiers: Qualified Code(s): I25.10 - Atherosclerotic heart disease of [place] coronary artery without angina pectoris
[2019-03-27] MEDS: *HR* LORazepam 0.5 MG TABLET PO SCH ×2 (15:48→20:58)
[2019-03-28] MEDS: Ipratropium/Albuterol Neb 3 ML IH SCH ×2 (04:00→10:12)
[2019-03-28 05:00] LABS: Basophils % 0.3 %; Eosinophils # 0.1 K/mcL (0.0-0.6); Eosinophils % 0.7 %; Hematocrit 38.1 % (37.5-50.1); Immature Granulocytes % 2.5 % (0-4); Lymphocytes # 1.1 K/mcL (0.6-4.6); Lymphocytes % 9.5 %; Mean Corpuscular HGB Conc 34.1 g/dL (31.6-35.5); Monocytes # 0.7 K/mcL (0.0-1.3); Monocytes % 6.2 %; Neutrophils # 8.9 K/mcL (1.6-8.9); Platelet Count 195 K/mcL (140-400); Red Blood Count 4.33 M/mcL (4.19-5.50); Red Cell Distribution Width 13.1 % (11.5-14.5); Segmented Neutrophils % 80.8 %; White Blood Count 11.1 K/mcL (4.3-11.1)
[2019-03-28 05:20] LABS: BUN/Creatinine Ratio 20 (6-26); Blood Urea Nitrogen 13 mg/dL (6-20); Carbon Dioxide 31 mEq/L (23-29); Chloride 98 mEq/L (98-107); Glucose 146 mg/dL (70-105); Osmolality,Calculated 287 (280-300); Potassium 3.4 mEq/L (3.5-5.1); Sodium 137 mEq/L (136-145); eGFR For African Americans > 60 (> 60); eGFR For Non-African Americans > 60 (> 60)
[2019-03-28] MEDS: 0.9 % Sodium Chloride 1,000 ML IVC SCH (06:05)
[2019-03-28] MEDS: *HR* Enoxaparin 40 MG/0.4 ML SYRINGE SQ SCH (06:07)
[2019-03-28 07:51] VITALS: BP 159/100
[2019-03-28] MEDS: Pantoprazole 40 MG VIAL IVP SCH (08:11)
[2019-03-28] MEDS: *HR* LORazepam 0.5 MG TABLET PO SCH (08:12)
[2019-03-28] MEDS: Folic Acid 1 MG TABLET PO SCH (08:12)
[2019-03-28] MEDS: Nicotine 14 MG PATCH.TD24 TD SCH (08:12)
[2019-03-28] MEDS: Insulin DETEMIR 100 UNIT/ML X5UNITS SQ SCH (08:14)
[2019-03-28] MEDS: levoFLOXacin 750 MG/150 ML 750 MG/150 ML BAG IVPB SCH (08:14)
[2019-03-28] MEDS: Piperacillin/Tazobactam 3.375 GM in 0.9 % Sodium Chloride Mini Bag 100 ML IVPB SCH (08:15)
[2019-03-28] MEDS: Insulin LISPRO 300 UNITS/3 ML VIAL SQ SCH (08:17)
[2019-03-28] MEDS: predniSONE 20 MG TABLET PO SCH (08:17)
[2019-03-28] MEDS: (Ketotifen Fumarate [Zaditor] 1 DROP) OP SCH (08:17)
[2019-03-28] MEDS: Tetrahydrozoline 15 ML BOTTLE BOTH EYES SCH (08:18)
--- NOTE | 2019-03-28 09:59 | Discharge Summary ---
- NOTES TO OUTPATIENT PROVIDER Notes to Outpatient Provider: Posthospital follow-up for Legionella pneumonia. Patient will be sent home on insulin therapy given his A1c of 9.6 Orders not resulted at time of discharge: Pending orders 03/24/19 07:33 Culture,Blood [BC] Stat 03/25/19 09:26 Culture,Sputum with Gram Stain [RM] Routine 03/29/19 04:00 Basic Metabolic Panel AM 0400 Complete Blood Count [HEME] AM 0400 Magnesium AM 0400 Date of Encounter: 03/28/19 Time of Encounter: 09:57 - Discharge Diagnosis (1) Legionella pneumonia Priority: Primary Status: Acute Assessment and Plan: WBC normalized, he is afebrile we will discharge home on levofloxacin to complete a seven-day therapy outpatient Although there were initial concerns of possible aspiration pneumonia given his chronic alcoholic use, lab reports from the [facility] office with a revealed that patient had positive Legionella antigen in his urine. Is most likely that patient has Legionella pneumonia given his hyponatremia also which was initially related to his chronic alcoholism. His initial empiric antimicrobial therapy of vancomycin and Zosyn has been the escalated to Zosyn only both with the addition of levofloxacin given the aforementioned findings. His leukocytosis is trending down however he continues to have febrile response. Clinically appears to be improving likely going through alcohol withdrawal (2) Diabetes Priority: Secondary Status: Acute Assessment and Plan: We will discharge home on insulin short acting and basal insulin [id number] glucose monitoring and showed improvement since initiated On insulin therapy 170-250. Patient did admit to being noncompliant with his diabetic management hemoglobin A1c on admission was 9.6 will initiate basal as well as sliding scale insulin Qualifiers: Diabetes mellitus type: type 2 Qualified Code(s): E11.69 - Type 2 diabetes mellitus with other specified complication (3) Hyponatremia Priority: Secondary Status: Acute Assessment and Plan: Results sodium on discharge is 137 Serum sodium improved from 129-131. Continue fluiid restriction 1.2 L. No futher workup will be initiated at this time will clinically correlate. suspect combination of chronic alcoholism as well as decreased oral intake he is asymptomatic, however his Legionella pneumonia could be also contributing anticipates to continue to trend up we will check BMP in the morning (4) Chronic alcohol dependence, continuous Priority: Secondary Status: Acute Assessment and Plan: Patient has been successfully detoxed he was encouraged to limit his alcoholic beverage consumption Patient appears to be going through alcohol withdrawal at this time given his tachycardia and agitation. We will plan on placing him on scheduled Ativan for the next 48 hours. Patient is not forthcoming with his alcoholic history he has been placed on the CIWA protocol. His agitation this morning could be attributable to alcoholic withdrawal. Patient is not deemed capable of making medical decisions as such should not be allowed to leave AMA if any medical hold should be placed on the patient (5) COPD exacerbation Priority: Secondary Status: Acute Assessment and Plan: The dirty fish tank in the home is likely the etiology for his Legionella infection. Discussed with patient and his daughter that the dirty fish tank needs to be cleaned or removed from his home so as to prevent frequent hospitalization for COPD exacerbation. This sent home on DuoNeb as well as budesonide nebulizer and his long tapered dose of prednisone Likely secondary to his right lower lobe pneumonia he did state that he has home nebulizer machine at home and has been compliant with his chronic inhalers con tinue DuoNeb therapy (6) Coronary artery disease Priority: Secondary Status: Acute Assessment and Plan: Chronic and stable the patient denies complaint of chest pain, EKG changes revealed no significant changes, will continue home medications Qualifiers: Qualified Code(s): I25.10 - Atherosclerotic heart disease of [place] coronary artery without angina pectoris (7) GERD (gastroesophageal reflux disease) Priority: Secondary Status: Acute Assessment and Plan: we'll continue proton pump inhibitor Qualifiers: Esophagitis presence: without esophagitis Qualified Code(s): K21.9 - Gastro-esophageal reflux disease without esophagitis (8) DVT prophylaxis Priority: Secondary Status: Acute Assessment and Plan: the patient on SCDs, he is on [facility] Hospital course: Mr. Abbott is a 54 year old male was hospitalized for sensitivity exacerbation admitted to have right middle lobe and upper lobe infiltrates, and he was placed on empiric antibiotics with vancomycin and Zosyn. With concern for possible aspiration pneumonia as such patient was ordered a modified barium swallow which was unremarkable. The [place] in [facility] laboratory workup the patient had positive Legionella antigen for which his antibiotics was switched to Zosyn and levofloxacin. He will be sent home on levofloxacin orally for 7 days. During his short hospital stay patient was also managed for his hyponatremia which is multifactorial given his chronic alcoholism and Legionella. He was successfully detoxed from alcohol withdrawal. He was noted to have uncontrolled diabetes for which she has been initiated on insulin therapy given his A1c was 9.6. Among his risk factor for future exacerbation is a dirty fish tank in his home. Patient and his daughter were encouraged to clean the fish tank or get rid of it. He will be given prescriptions for glucometer and encouraged to make sure he does his blood fingersticks. Discharge discussed with: patient, family, nurse, social work, case management - Time Spent with Patient Total time spent providing and/or coordinating discharge services: 55 mins - Discharge Medications Prescriptions: New Alcohol Antiseptic Pads [Alcohol Pads] 1 each TP 2-4XD #100 med..pad Ipratropium/Albuterol Neb [Duoneb] 3 ml IH Q4HR PRN #100 inhsol PRN Reason: Wheezing Insulin Aspart (Niacinamide) [Fiasp 100 Unit/ml Flextouch] 5 unit SQ TIDAC #1 insuln.pen Folic Acid 1 mg PO DAILY #30 tablet Insulin DETEMIR [Levemir] 30 unit SQ DAILY #1 [id number] Nicotine Patch [Nicoderm] 14 mg TD DAILY #30 patch.td24 predniSONE [PredniSONE] See Taper PO DAILY #30 tablet Budesonide Neb [Pulmicort Neb] 0.5 mg IH BIDR #60 ampul.neb Thiamine HCl 100 mg PO QAM #30 tablet Continued Atorvastatin Calcium [Lipitor] 40 mg PO HS Omeprazole [PriLOSEC] 20 mg PO DAILY Ipratropium/Albuterol Sulfate [Combivent Respimat Inhal Adams] 1 puff IH QID PRN PRN Reason: Shortness Of Breath Budesonide/Formoterol 160/4.5 [Symbicort 160/4.5] 2 puff IH BIDR Cetirizine HCl [Zyrtec] 10 mg PO DAILY PRN PRN Reason: Allergy Symptoms Ketotifen Fumarate [Zaditor] 1 drop BOTH EYES BID Losartan Potassium 50 mg PO DAILY Metformin HCl [Glucophage Xr] 1,000 mg PO DAILY Tetrahydrozoline HCl [Visine] 2 drop BOTH EYES DAILY Discontinued Alogliptin Benzoate [Alogliptin] 25 mg PO DAILY Ipratropium/Albuterol Sulfate [Iprat-Albut 0.5-3(2.5) mg/3 ml] 3 ml IH Q6H PRN PRN Reason: Shortness Of Breath Home Medications: Atorvastatin Calcium [Lipitor] 40 mg PO HS 03/24/19 [History] Ipratropium/Albuterol Sulfate [Combivent Respimat Inhal Adams] 1 puff IH QID PRN 03/24/19 [History] Omeprazole [PriLOSEC] 20 mg PO DAILY 03/24/19 [History] Budesonide/Formoterol 160/4.5 [Symbicort 160/4.5] 2 puff IH BIDR 03/25/19 [History] Cetirizine HCl [Zyrtec] 10 mg PO DAILY PRN 03/25/19 [History] Ketotifen Fumarate [Zaditor] 1 drop BOTH EYES BID 03/25/19 [History] Losartan Potassium 50 mg PO DAILY 03/25/19 [History] Metformin HCl [Glucophage Xr] 1,000 mg PO DAILY 03/25/19 [History] Tetrahydrozoline HCl [Visine] 2 drop BOTH EYES DAILY 03/25/19 [History] Alcohol Antiseptic Pads [Alcohol Pads] 1 each TP 2-4XD #100 med..pad 03/28/19 [Rx] Blood Sugar Diagnostic [Accu-Chek Guide Test Strip] 1 each ACHS #100 strip 03/28/19 [Rx] Blood-Glucose Meter, Drum-Type [Accu-Chek] 1 each DAILY #1 kit 03/28/19 [Rx] Budesonide Neb [Pulmicort Neb] 0.5 mg IH BIDR #60 ampul.neb 03/28/19 [Rx] Folic Acid 1 mg PO DAILY #30 tablet 03/28/19 [Rx] Insulin Aspart (Niacinamide) [Fiasp 100 Unit/ml Flextouch] 5 unit SQ TIDAC #1 insuln.pen 03/28/19 [Rx] Insulin DETEMIR [Levemir] 30 unit SQ DAILY #1 [id number] 03/28/19 [Rx] Ipratropium/Albuterol Neb [Duoneb] 3 ml IH Q4HR PRN #100 inhsol 03/28/19 [Rx] Lancets 1 each ACHS #100 each 03/28/19 [Rx] Levofloxacin [Levaquin] 750 mg PO DAILY 10 Days #10 tablet 03/28/19 [Rx] Nicotine Patch [Nicoderm] 14 mg TD DAILY #30 patch.td24 03/28/19 [Rx] Thiamine HCl 100 mg PO QAM #30 tablet 03/28/19 [Rx] predniSONE [PredniSONE] See Taper PO DAILY #30 tablet 03/28/19 [Rx] Allergies/Adverse Reactions: Allergy/AdvReac Type Severity Reaction Status Date / Time naproxen AdvReac Gastrointestinal Verified 03/25/19 08:07 Upset Date of admission: 03/24/19 10:18 Primary care physician: PCP NONE Consults: 03/24/19 11:10 Consult to Nurse Navigator [CONS] Routine Comment: 03/25/19 09:40 Consult to Speech Therapy [CONS] Routine Comment: Evaluate, develop and implement POC Reason for Consult: right upper and right middle lobe infiltrate, HX of alcoholism. Concern for silent aspiration. Please evaluate, MBS if indicated Call Completed: No 03/25/19 10:04 Consult to Locker Room Supervisor [CONS] Routine Reason for SW Consult: diabetic [facility] patient. Will need discharge home on insulin will need glucometer and supplies. He may also need home oxygen Discharging clinician: Anupama Vivar Anticipated date of discharge: 03/28/19 - Constitutional Vitals: Temp Pulse Resp BP Pulse Ox 98.7 F 91 24 159/100 90 03/28/19 07:45 03/28/19 07:45 03/28/19 07:45 03/28/19 07:45 03/28/19 07:45 General appearance: Present: A&O X 3 Exam: GENERAL: appears unkept appears NAD, SKIN: No skin lesions or rashes, non-jaundiced EYES: EOMI, PERRLA, no sclera icterus HENT: Head atraumatic, no facial asymmetry, NECK: No cervical lymphadenopathy, trachea midline LUNGS: somewhat diminished with scattered rales but improved from yesterday's exam. no wheeze, rhonchi, Non labored respirations HEART: Normal rate and rhythm, no murmurs or rubs ABDOMEN: soft, non-tender, non-distended, bowel sounds x 4 normoactive EXTRMITIES: No LE asymmetry, No LE edema, pedal pulses 1+ and radial pulses 2 + and equal bilaterally NEURO: A&O x 3, his speech and comprehension appears intact PSYCH: Mood and affect is appropriate - Patient Status Disposition: Home, Self-Care Condition: Fair Functional capacity at discharge: independent ambulation Overall status at discharge: patient is back to baseline - Discharge Instructions Follow Up With: NONE,PCP [Primary Care Provider] - - Diet and Activity Activity: resume usual activities as tolerated
[2019-03-28] MEDS: Budesonide/Formoterol 160/4.5 1 PUFF INH IH SCH (10:12)
== END 2019-03-28 12:59 | disposition home or self-care (01) | DRG 871 ==
LOC: EMEROOARM 05:48 → SUATTDRO 10:18 → 2NNU 10:18
PROVIDERS: ADMIT Internal Medicine Nephrology; ATTEND Pharmacist